=== PATIENT | male | born 1970 | race Caucasian/White ===

== ENCOUNTER 2018-04-22 12:07 | Day surgery (SDC) | payer OTHER ==
[2018-04-19 09:22] VITALS: BMI 36.9
[2018-04-22] MEDS ORDERED: MIDAZOLAM HCL 2 MG/2 ML SINGLE DOSE VIAL ONE (14:29)
[2018-04-22] MEDS ORDERED: BUPIVACAINE HCL/PF 2.5 MG/ML - 30 ML VIAL IJ ONE (14:36)
[2018-04-22] MEDS ORDERED: PROPOFOL 20 ML ONE ×2 (15:03)
[2018-04-22] MEDS ORDERED: ONDANSETRON 4 MG/2 ML VIAL ONE (15:08)
[2018-04-22] MEDS ORDERED: DEXAMETHASONE SOD PHOSPHATE 4 MG/1 ML VIAL ONE (15:08)
[2018-04-22] MEDS ORDERED: KETOROLAC TROMETHAMINE 30 MG/1 ML VIAL ONE (15:09)
[2018-04-22] MEDS ORDERED: ceFAZolin SODIUM 1 GM VIAL ONE (15:18)
[2018-04-22] MEDS ORDERED: BUPIVACAINE HCL/PF 0.25% (2.5MG/ML) 10 ML VIAL IJ ONE (15:40)
[2018-04-22] MEDS ORDERED: oxyCODONE HCL 5 MG TABLET PO PRN (15:50)
[2018-04-22] MEDS ORDERED: ONDANSETRON 4 MG/2 ML VIAL IVPUSH PRN (15:50)
[2018-04-22] MEDS ORDERED: LACTATED RINGERS SOLUTION 1,000 ML IV SCH (16:00)
[2018-04-22] MEDS ORDERED: ONDANSETRON 4 MG/2 ML VIAL IVPUSH ONE (16:00)
[2018-04-22 18:37] VITALS: BP 130/78; PULSE 77; TEMP 98.1
--- NOTE | 2018-04-23 00:34 | OP ---
DATE OF OPERATION: 04/22/2018 SURGEON: Tacho Griffin M.D. CITY DETECTIVE: Lyndsay Asencio PREOPERATIVE DIAGNOSIS: 1. Right knee medial lateral meniscal tear. 2. Right knee cartilage injury. 3. Right knee synovitis. POSTOPERATIVE DIAGNOSIS: 1. Right knee medial lateral meniscal tear. 2. Right knee cartilage injury. 3. Right knee synovitis. PROCEDURE: 1. Right knee arthroscopy, partial meniscectomy medial and lateral meniscus. CPT code 52901. 2. Right knee arthroscopy with chondroplasty and abrasion plasty. CPT code 98941. 3. Right knee arthroscopy synovectomy including removal of medial plica. CPT code 85174. FINDINGS: 1. Medial meniscus body and posterior horn tear. 2. Lateral meniscus posterior horn tear with medial more extensive. 3. Synovitis patellofemoral medial lateral notch area. 4. cartilage injury medial joint line. 5. ACL and PCL intact. 6. Antegrade 2 cartilage injury, medial portion lateral tibial plateau. 7. Central grade 2-3 cartilage injury patellofemoral trochlea and small area of proximal grade 4 changes, anterior bone spur. 8. Anterior grade 2-3 cartilage injury patellofemoral trochlea site of anterior and medial synovial adhesions. PROCEDURE: Informed consent was obtained. The patient came to the operating room, where the lower extremity was prepped and draped in a sterile fashion. A tourniquet was placed on the upper thigh, but not inflated. Using standard arthroscopic technique, a lateral incision and portal was made to allow for introduction of the camera into the suprapatellar bursa. This was then taken to the medial joint line, where under direct visualization, a medial incision and portal was made. Excessive synovium noted in the medial, lateral and patellofemoral and notch area was removed by an upbiter, shaver and Bovie cautery. This was found to bring in inflammatory tissue into the joint surface, a source of pain and dysfunction. Probing of the medial and lateral meniscus found tears, as described in the findings. These were removed with the upbiter and shaver and taken back to a stable rim. Grade 2 to 3 degenerative changes were treated with a chondroplasty, removing all flaking surfaces with low-setting Bovie along the periphery to prevent further flaking. Grade 4 changes, as noted, were treated with an abrasoplasty, creating a bleeding surface at the bone/cartilage interface. Aggressive debridement with shaver/neal created bleeding surface. Mirco fracture also done when indicated in findings. All areas of the knee were once again reexamined. The knee was then drained and a single suture was placed in all portals. A sterile dressing was placed and the patient was transferred to the recovery room without complication. TACHO GRIFFIN M.D. [id number]
--- NOTE | 2018-04-27 14:54 | PATH ---
Surgical Pathology Report Patient Name: ALCIRA REYES Med. Rec. #: [id number] /Age/Gender: 1970 (Age: 47) / M Account: [id number] Location: [facility] AMBULATORY Taken: 04/22/2018 Received: 04/22/2018 Reported: 04/27/2018 Physicians: Tacho Oliveira M.D. Specimen(s) Received RIGHT KNEE SHAVINGS Clinical History Internal derangement of right knee Final Diagnosis KNEE, RIGHT, ARTHROSCOPIC SHAVINGS: FIBROSYNOVIAL TISSUE AND SCANT CARTILAGE. Electronically Signed Desirae Pham M.D. Gross Description Received in formalin, labeled "right knee shavings," is a 4.5 x 4.0 x 0.3 cm. aggregate of capps-yellow soft tissue fragments. 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 /04/25/2018 saudi/04/25/2018
== END 2018-04-22 18:35 | disposition home or self-care (01) ==
LOC: FASU 12:07
PROVIDERS: ATTEND Orthopaedic Surgery
PROC: 0SBC4ZZ Excision of Right Knee Joint, Percutaneous Endoscopic Approach (ICD-10-PCS; 2018-04-22)
PROC: 0SBC4ZZ Excision of Right Knee Joint, Percutaneous Endoscopic Approach (ICD-10-PCS; 2018-04-22)
PROC: 0SBC4ZZ Excision of Right Knee Joint, Percutaneous Endoscopic Approach (ICD-10-PCS; principal; 2018-04-22 13:30)
DX: S83.241A Other tear of medial meniscus, current injury, right knee, initial encounter (principal); S83.281A Other tear of lateral meniscus, current injury, right knee, initial encounter; S83.8X1A Sprain of other specified parts of right knee, initial encounter; M65.861 Other synovitis and tenosynovitis, right lower leg; X58.XXXA Exposure to other specified factors, initial encounter; Y93.9 Activity, unspecified; Y92.9 Unspecified place or not applicable
CPT/HCPCS: 88304-TC; 94760